=== PATIENT | male | born 1945 | race Caucasian/White ===

== ENCOUNTER → 2017-05-25 | Outpatient (CLI) | payer MEDICARE ==
[2017-05-25 12:49] LABS: AUTOMATED NEUTROPHIL # 3.8 TH/MM3 (1.8-7.7); BASOPHIL # 0.1 TH/MM3 (0-0.2); BASOPHIL % 1.3 % (0.0-2.0); EOSINOPHIL # 0.5 TH/MM3 (0-0.4); EOSINOPHIL % 6.4 % (0.0-4.0); HEMATOCRIT 42.4 % (39.0-51.0); HEMO FLAGS DIFF FINAL; LYMPH % 28.6 % (9.0-44.0); LYMPHOCYTE # 2.1 TH/MM3 (1.0-4.8); MEAN CELL VOLUME 88.8 FL (80.0-100.0); MEAN CORPUSCULAR HEMOGLOBIN 30.1 PG (27.0-34.0); MEAN CORPUSCULAR HGB CONC 33.9 % (32.0-36.0); MONO % 11.2 % (0.0-8.0); NEUT % 52.5 % (16.0-70.0); PLATELET COUNT 236 TH/MM3 (150-450); RED BLOOD COUNT 4.77 MIL/MM3 (4.50-5.90); RED CELL DISTRIBUTION WIDTH 13.2 % (11.6-17.2); WHITE BLOOD COUNT 7.2 TH/MM3 (4.0-11.0)
[2017-05-25 13:23] LABS: ANION GAP 5 MEQ/L (5-15); AST (GOT) 14 U/L (15-37); BICARBONATE 30.2 MEQ/L (21.0-32.0); BLOOD UREA NITROGEN 20 MG/DL (7-18); CHLORIDE 105 MEQ/L (98-107); GLOMERULAR FILTRATION RATE 54 ML/MIN (>89); GLUCOSE,FASTING 100 MG/DL (74-99); POTASSIUM 4.6 MEQ/L (3.5-5.1); SODIUM (NA) 140 MEQ/L (136-145)
[2017-05-25 13:34] LABS: ALKALINE PHOSPHATASE 60 U/L (45-117); ALT (GPT) 23 U/L (12-78); LDL CHOLESTEROL 100 MG/DL (0-99)
== END ==
LOC: PLAB 08:54
PROVIDERS: ATTEND Family Medicine
DX: I10 Essential (primary) hypertension (principal); E78.5 Hyperlipidemia, unspecified
CPT/HCPCS: 36415; 80053; 80061; 85025

== ENCOUNTER 2018-11-13 11:54 | Inpatient (IN) ==
--- NOTE | 2018-11-13 14:18 | ED ---
HPI General Chief Complaint: Extremity Injury, Lower Stated Complaint: Seen Yesterday Trip/Fall R Arm/L Foot Injury Time Seen by Provider: 11/13/18 13:51 Source: patient and family History of Present Illness HPI Narrative: 73-year-old male with a past medical history of hypertension presents to the emergency room for the second day in a row complaining of left ankle pain after a fall. Patient fell from the attic onto the floor yesterday causing right shoulder and right ankle pain. Patient had right shoulder dislocation for which he had reduced. Left ankle x-rays showed no fractures. Today he presents to the ER with increasing pain in the left foot with inability to walk on along with blisters formation on both sides of the left ankle. Patient had an ankle stirrup in place for the sprained ankle from yesterday. Patient denies seizure-like activity, dizziness, weakness, numbness or altered mental status. Related Data Home Medications Medication Instructions Recorded Confirmed aspirin [Aspir-81] 81 mg PO DAILY 11/13/18 11/13/18 lisinopril-hydrochlorothiazide 1 tab PO DAILY 11/13/18 11/13/18 metoprolol tartrate 1 mg/kg PO BID 11/13/18 11/13/18 omeprazole 20 mg PO DAILY 11/13/18 11/13/18 Allergies Allergy/AdvReac Type Severity Reaction Status Date / Time No Known Allergies Allergy Verified 11/12/18 14:58 Review of Systems ROS: all other systems reviewed are negative Constitutional Denies fever(s) Eyes Denies change in vision ENT Denies headache(s) and Denies nasal congestion Cardiovascular Denies chest pain Respiratory Denies dyspnea Gastrointestinal Denies abdominal pain Genitourinary Denies difficulty urinating Musculoskeletal Denies myalgias Integumentary/Breasts Denies rash Neurologic Denies headache(s) Psychiatric Denies depression Endocrine Denies polyuria Hematologic/Lymphatic Denies easy bruising PMFSH Medical History Medical History GERD (gastroesophageal reflux disease) (Acute) Obesity (Acute) Hypertension (Acute) Surgical History Surgical History No history of previous surgery (Acute) Family History Family History Other Family history non-contributory Social History Social History Substance History: No History of Abuse Second Hand Smoke Exposure: No Smoking Status: Never smoker How Often Do You Have a Drink Containing Alcohol: Monthly or less Recent Travel in [facility] within the Last 8 Weeks: No Recent Out of Country Travel within the Last 8 Weeks: No Immunization History Tetanus Immunization: <5 Years Exam Narrative Exam Narrative: GENERAL: Patient is alert and oriented -3 SKIN: Focused skin assessment warm/dry. HEAD: Atraumatic. Normocephalic. EYES: Pupils equal and round. No scleral icterus. No injection or drainage. ENT: No nasal bleeding or discharge. Mucous membranes pink and moist. NECK: Trachea midline. No JVD. CARDIOVASCULAR: Regular rate and rhythm. No murmur appreciated. RESPIRATORY: No accessory muscle use. Clear to auscultation. Breath sounds equal bilaterally. GASTROINTESTINAL: Abdomen soft, non-tender, nondistended. Hepatic and splenic margins not palpable. MUSCULOSKELETAL: Right shoulder is in shoulder immobilizer with tenderness to palpation anteriorly. There is reduced range of motion in the right shoulder due to pain. The left ankle and foot are swollen with ecchymosis and blisters on the medial lateral malleoli. Patient also has tenderness to palpation over the fifth metatarsal and calcaneus. NEUROLOGICAL: Awake and alert. No obvious cranial nerve deficits. Motor grossly within normal limits. Normal speech. PSYCHIATRIC: Appropriate mood and affect; insight and judgment normal. Course Initial Documented Vital Signs Temperature 98.5 F 11/13/18 12:09 Pulse Rate 90 11/13/18 12:09 Respiratory Rate 18 11/13/18 12:09 Blood Pressure 151/69 H 11/13/18 12:09 Pulse Oximetry 90 L 11/13/18 12:09 Last Documented Vital Signs Temperature 98.5 F 11/13/18 12:09 Pulse Rate 85 11/13/18 18:30 Respiratory Rate 18 11/13/18 18:30 Blood Pressure 180/85 H 11/13/18 18:36 Pulse Oximetry 97 11/13/18 18:30 Medical Decision Making MDM Narrative Medical decision making narrative: 73-year-old male with a past medical history of hypertension presents to the emergency room today complaining of left ankle and foot pain with blister formation on the ankle. Patient was unable to bear weight on the left leg due to pain and swelling. An x-ray of the left foot today revealed a comminuted calcaneal fracture that was confirmed with CAT scan. I discussed the findings with the orthopedic presentation team member who referred me to Dr. Ramriez. I discussed the admission with the hospitalist who accepted to admit the patient to [facility] medical floor. At this time the patient is splinted with a posterior and lateral ankle splint. Patient is neurovascularly intact post splint placement. Pain is well controlled. Medical Screen Exam Complete: Yes Emergency Medical Condition: Yes Lab Data Result diagrams: 11/13/18 17:05 11/13/18 17:05 Lab Results 11/13/18 11/13/18 11/13/18 Range/Units 17:05 17:05 17:05 CBC w Diff Auto diff final WBC 11.4 H (4.0-11.0) th/mm3 RBC 4.16 L (4.50-5.90) mil/mm3 Hgb 12.9 L (13.0-17.0) gm/dL Hct 36.2 L (39.0-51.0) % MCV 87.1 (80.0-100.0) fL MCH 30.9 (27.0-34.0) pg MCHC 35.5 (32.0-36.0) % RDW 12.0 (11.6-17.2) % Plt Count 257 (150-450) th/mm3 MPV 8.1 (7.0-11.0) fL Neut % (Auto) 76.4 H (16.0-70.0) % Lymph % (Auto) 11.0 (9.0-44.0) % Dade % (Auto) 11.0 H (0.0-8.0) % Eos % (Auto) 0.7 (0.0-4.0) % Baso % (Auto) 0.9 (0.0-2.0) % Neut # (Auto) 8.6 H (1.8-7.7) th/mm3 Lymph # (Auto) 1.3 (1.0-4.8) th/mm3 Dade # (Auto) 1.3 H (0.0-0.9) th/mm3 Eos # (Auto) 0.1 (0.0-0.4) th/mm3 Baso # (Auto) 0.1 (0.0-0.2) th/mm3 WBC Differential . Differential Comment . PT (9.8-11.6) sec INR Ratio APTT (23.4-31.7) sec Sodium 137 (136-145) meq/L Potassium 3.6 (3.5-5.1) meq/L Chloride 105 (98-107) meq/L Carbon Dioxide 24.5 (21.0-32.0) meq/L Anion Gap 8 (5-15) meq/L BUN 19 H (7-18) mg/dL Creatinine 1.10 (0.60-1.30) mg/dL Estimated GFR 66 L (>89) mL/min Random Glucose 116 H (74-106) mg/dL Calcium 9.1 (8.5-10.1) mg/dL Total Bilirubin 1.0 (0.2-1.0) mg/dL AST 21 (15-37) U/L ALT 28 (12-78) U/L Alkaline Phosphatase 68 (45-117) U/L Total Creatine Kinase 473 H (39-308) U/L CK-MB (CK-2) Less than 1.0 (0.5-3.6) ng/mL CK-MB (CK-2) % 0.2 (0.0-4.0) % Troponin I (0.02-0.05) ng/mL Total Protein 7.5 (6.4-8.2) g/dL Albumin 3.7 (3.4-5.0) g/dL 11/13/18 11/13/18 Range/Units 17:05 17:05 CBC w Diff WBC (4.0-11.0) th/mm3 RBC (4.50-5.90) mil/mm3 Hgb (13.0-17.0) gm/dL Hct (39.0-51.0) % MCV (80.0-100.0) fL MCH (27.0-34.0) pg MCHC (32.0-36.0) % RDW (11.6-17.2) % Plt Count (150-450) th/mm3 MPV (7.0-11.0) fL Neut % (Auto) (16.0-70.0) % Lymph % (Auto) (9.0-44.0) % Dade % (Auto) (0.0-8.0) % Eos % (Auto) (0.0-4.0) % Baso % (Auto) (0.0-2.0) % Neut # (Auto) (1.8-7.7) th/mm3 Lymph # (Auto) (1.0-4.8) th/mm3 Dade # (Auto) (0.0-0.9) th/mm3 Eos # (Auto) (0.0-0.4) th/mm3 Baso # (Auto) (0.0-0.2) th/mm3 WBC Differential Differential Comment PT 11.0 (9.8-11.6) sec INR 1.1 Ratio APTT 30.3 (23.4-31.7) sec Sodium (136-145) meq/L Potassium (3.5-5.1) meq/L Chloride (98-107) meq/L Carbon Dioxide (21.0-32.0) meq/L Anion Gap (5-15) meq/L BUN (7-18) mg/dL Creatinine (0.60-1.30) mg/dL Estimated GFR (>89) mL/min Random Glucose (74-106) mg/dL Calcium (8.5-10.1) mg/dL Total Bilirubin (0.2-1.0) mg/dL AST (15-37) U/L ALT (12-78) U/L Alkaline Phosphatase (45-117) U/L Total Creatine Kinase (39-308) U/L CK-MB (CK-2) (0.5-3.6) ng/mL CK-MB (CK-2) % (0.0-4.0) % Troponin I Less than 0.02 L (0.02-0.05) ng/mL Total Protein (6.4-8.2) g/dL Albumin (3.4-5.0) g/dL Imaging Data Radiologist's impression: Foot X-Ray 11/13/18 14:09 CONCLUSION: Questionable comminuted, minimally displaced fracturing of the mid and distal body of the calcaneus. If felt clinically indicated, left foot CT recommended. Other bones of the left foot appear intact. Foot CT 11/13/18 14:38 CONCLUSION: Extremely comminuted acute fracture of the calcaneus as described. There is intra-articular involvement of the calcaneocuboid joint and also the posterior and middle facets of the subtalar joint. Please see above. Chest X-Ray 11/13/18 16:48 CONCLUSION: No acute cardiopulmonary disease demonstrated. Discharge Plan Discharge Disposition Patient Disposition: 02 Transfer To [facility] Discharge Condition Condition: Fair Discharge Details Diagnosis: Closed left calcaneal fracture, Accelerated hypertension, Ambulatory dysfunction, Dislocation of shoulder joint Physicians Team ED Provider: Omkar Retana Primary Care Provider: Cb Higgins Attending Provider: Cezar John Other Providers: Deepak Lockhart Status ED Status: Admitted Patient
--- NOTE | 2018-11-13 14:34 | XR ---
EXAM DATE: 11/13/2018 2:24 PM EST AGE/SEX: 73 years / Male INDICATIONS: Left foot pain after fall. CLINICAL DATA: This is the patient's subsequent encounter. Patient reports that signs and symptoms h ave been present for 2 days and indicates a pain score of 7/10. MEDICAL/SURGICAL HISTORY: Hypertension. None. COMPARISON: [facility], ANKLE COMPLETE LEFT MIN 3V, 11/12/2018. . FINDINGS: Soft tissues are diffusely swollen. There is questionable comminuted but minimally displaced fracturi ng of the calcaneus in the mid to distal body region. Other bones of the left foot appear intact. 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 Os peroneum present. There is a small heel spur and also a small enthes ophyte of the Achilles insertion. CONCLUSION: Questionable comminuted, minimally displaced fracturing of the mid and distal body of the calcaneus. If felt clinically indicated, left foot CT recommended. Other bones of the left foot appear intact. Electronically signed by: Gino Cope MD Board Certified Radiologist 11/13/2018 2:33 PM EST
--- NOTE | 2018-11-13 15:54 | CT ---
EXAM DATE: 11/13/2018 3:43 PM EST AGE/SEX: 73 years / Male INDICATIONS: Left calcaneus pain. Evaluate fracture. CLINICAL DATA: This is the patient's initial encounter. Patient reports that signs and symptoms have been present for 2 days and indicates a pain score of 8/10. MEDICAL/SURGICAL HISTORY: Hypertension. None. RADIATION DOSE: 8.87 CTDI (mGy) COMPARISON: [facility], FOOT COMPLETE LEFT 3V, 11/13/2018. . TECHNIQUE: Multiple contiguous axial images were acquired using a multirow detector CT scanner witho ut contrast. Multiplanar reconstruction was performed in the sagittal and coronal planes. Using auto mated exposure control and adjustment of the mA and/or kV according to patient size, radiation dose w as kept as low as reasonably achievable to obtain optimal diagnostic quality images. DICOM format im age data is available electronically for review and comparison. FINDINGS: CT confirms presence of a comminuted fracture of the calcaneus at the fracture involves the body and is intra-articular at the posterior and middle facets. There is generalized subsidence and associated straightening of Boehler's angle. There is approximately 4 mm of separation and 2 mm of step off of the middle facet articular surface. The posterior facet articular surface as extremely comminuted and there is generalized central downsloping. A large posteromedial fragment of the posterior facet has posteromedial downsloping. The fracture focally involves the far inferomedial articular surface of th e calcaneocuboid joint and is quite comminuted and without the 4 mm of step-off, series 305 image 30. Plantar fascia and Achilles attachments are not involved by fracture. Other bones of the hindfoot are intact. There is a multipart os peroneum. CONCLUSION: Extremely comminuted acute fracture of the calcaneus as described. There is intra-articul ar involvement of the calcaneocuboid joint and also the posterior and middle facets of the subtalar j oint. Please see above. Electronically signed by: Gino Cope MD Board Certified Radiologist 11/13/2018 3:52 PM EST
[2018-11-13] MEDS ORDERED: Morphine Inj 4 MG/ML Vial IV.PUSH ONE (16:48)
[2018-11-13] MEDS ORDERED: Sod Chloride 0.9% Inj 1,000 ML IV.SIG SCH (17:00)
--- NOTE | 2018-11-13 17:07 | XR ---
EXAM DATE: 11/13/2018 5:03 PM EST AGE/SEX: 73 years / Male INDICATIONS: Pre op foot surgery. CLINICAL DATA: This is the patient's initial encounter. Patient reports that signs and symptoms have been present for 1 day and indicates a pain score of 0/10. MEDICAL/SURGICAL HISTORY: Hypertension. . COMPARISON: No prior exams available for comparison. FINDINGS: A single AP view of the chest demonstrates the lungs to be symmetrically aerated without evidence of mass, infiltrate or effusion. The cardiomediastinal contours are unremarkable. Osseous structures a re intact. CONCLUSION: No acute cardiopulmonary disease demonstrated. Electronically signed by: Gino Cope MD Board Certified Radiologist 11/13/2018 5:05 PM EST
[2018-11-13 17:30] LABS: Baso # (Auto) 0.1 th/mm3 (0.0-0.2); Baso % (Auto) 0.9 % (0.0-2.0); Eos # (Auto) 0.1 th/mm3 (0.0-0.4); Eos % (Auto) 0.7 % (0.0-4.0); Hematocrit 36.2 % (39.0-51.0); Hemoglobin 12.9 gm/dL (13.0-17.0); Lymph # (Auto) 1.3 th/mm3 (1.0-4.8); Mean Corpuscular HGB Conc 35.5 % (32.0-36.0); Mean Corpuscular Hemoglobin 30.9 pg (27.0-34.0); Mean Corpuscular Volume 87.1 fL (80.0-100.0); Mean Platelet Volume 8.1 fL (7.0-11.0); Mono # (Auto) 1.3 th/mm3 (0.0-0.9); Neut # (Auto) 8.6 th/mm3 (1.8-7.7); Neut % (Auto) 76.4 % (16.0-70.0); Platelet Count 257 th/mm3 (150-450); Red Blood Count 4.16 mil/mm3 (4.50-5.90); White Blood Count 11.4 th/mm3 (4.0-11.0)
[2018-11-13 17:31] LABS: Chloride 105 meq/L (98-107); Potassium 3.6 meq/L (3.5-5.1); Sodium 137 meq/L (136-145)
[2018-11-13 17:35] LABS: Calcium 9.1 mg/dL (8.5-10.1)
[2018-11-13 17:36] LABS: Albumin 3.7 g/dL (3.4-5.0); Anion Gap 8 meq/L (5-15); Blood Urea Nitrogen 19 mg/dL (7-18); Carbon Dioxide 24.5 meq/L (21.0-32.0); Glucose,Random 116 mg/dL (74-106)
[2018-11-13 17:39] LABS: Alanine Aminotransferase 28 U/L (12-78); Aspartate Aminotransferase 21 U/L (15-37); Glomerular Filtration Rate 66 mL/min (>89)
[2018-11-13 17:41] LABS: Total Protein 7.5 g/dL (6.4-8.2)
[2018-11-13 17:42] LABS: Alkaline Phosphatase 68 U/L (45-117)
[2018-11-13 17:46] LABS: Creatine Kinase 473 U/L (39-308)
[2018-11-13 17:59] LABS: Activated Partial Thrombo Time 30.3 sec (23.4-31.7); INR 1.1 Ratio
[2018-11-13] MEDS ORDERED: Metoprolol Inj 5 MG/5 ML Vial IV.PUSH ONE (18:00)
[2018-11-13 18:11] LABS: CKMB Percent 0.2 % (0.0-4.0)
[2018-11-13] MEDS ORDERED: hydrALAZINE HCl Inj 20 MG/ML Vial IV.PUSH ONE (18:34)
--- NOTE | 2018-11-13 19:12 | P.HP ---
History of Present Illness Service: [facility] adult med Primary Care Physician: Cb Higgins MD Chief Complaint: Left foot pain/swelling; right shoulder pain s/p fall History of Present Illness: 73-year-old male with a past medical history of hypertension presents to the emergency room for the second day in a row complaining of left ankle pain after a fall. Patient fell from the attic onto the floor yesterday causing right shoulder and left ankle pain. Patient had right shoulder dislocation which was reduced in ER yesterday. Left ankle x-rays showed no fractures on initial visit. Today he presents to the ER with increasing pain and swelling in the left foot with inability to walk along with swelling on both sides of the left ankle. Patient had an ankle stirrup in place since ER visit yesterday. Patient denies seizure-like activity, dizziness, weakness, numbness or altered mental status. No CP or SOB. CT left foot done today in ER demonstrates significantly comminuted calcaneal frx with involvement of joint. Case was d/w ortho per ER provider and [facility]o [facility] medicine service. I evaluated pt in ER prior to transfer to site. 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 Has been in area x 19 yrs - Diagnosis (1) Closed left calcaneal fracture (2) Accelerated hypertension (3) GERD (gastroesophageal reflux disease) Inpatient Certification: I certify that the inpatient services were ordered in accordance with Medicare regulations governing the order. This includes certification that hospital inpatient services are reasonable and necessary and in the case of services not specified as inpatient-only under 42 CFR 419.22(n), that they are appropriately provided as inpatient services in accordance to with the 2-midnight benchmark under 43 CFR 412.3(e) Review of Systems Constitutional: Reports malaise, Denies anorexia, Denies body ache(s), Denies chills, Denies daytime sleepiness, Denies excessive sweating, Denies fatigue, Denies fever(s), Denies headache(s), Denies increased appetite, Denies lack of energy, Denies night sweats, Denies weakness, Denies weight gain, Denies weight loss, Denies other Eyes: Denies blind spots, Denies blurry vision, Denies bulging eyes, Denies change in vision, Denies double vision, Denies discharge, Denies dry eyes, Denies floaters, Denies irritation, Denies itchy eyes, Denies loss of vision, Denies pain, Denies requires corrective lenses, Denies sensitivity to light, Denies other Ears, Nose, Mouth, and Throat: Denies abnormal hearing, Denies bleeding gums, Denies bad breath, Denies change in voice, Denies dental pain, Denies difficulty swallowing, Denies dizziness, Denies dry mouth, Denies ear discharge , Denies ear pain, Denies facial pain, Denies headache(s), Denies hearing loss, Denies hoarseness, Denies lip swelling, Denies nosebleed, Denies mouth lesions, Denies mouth pain, Denies nasal congestion, Denies nasal discharge, Denies nasal obstruction, Denies nasal trauma, Denies neck lump, Denies neck pain, Denies nose pain, Denies pain with swallowing, Denies poor balance, Denies post nasal drip, Denies ringing in the ears, Denies sinus pain, Denies sinus pressure , Denies sore throat, Denies throat swelling, Denies tongue swelling, Denies other Cardiovascular: Denies chest pain, Denies chest pain at rest, Denies chest pain with activity, Denies excessive sweating, Denies fainting, Denies fast heart rate, Denies foot swelling, Denies generalized swelling, Denies irregular heart rhythm, Denies leg pain with activity, Denies leg sores, Denies leg swelling, Denies lightheadedness, Denies radiating jaw, neck or arm pain, Denies rapid, pounding, or irregular heartbeat, Denies shortness of breath, Denies shortness of breath with activity, Denies shortness of breath when lying down, Denies shortness of breath causing sudden awakening, Denies slow heart rate, Denies other Respiratory: Denies change in phlegm color, Denies chest congestion, Denies cough, Denies coughing up blood, Denies excessive phlegm production, Denies pain on inspiration, Denies pain with cough, Denies shortness of breath, Denies shortness of breath with activity, Denies snoring, Denies stridor, Denies wheezing, Denies other Gastrointestinal: Denies abdominal pain, Denies belching, Denies black, tarry stools, Denies bloating, Denies bright, red blood in stools, Denies change in bowel habits, Denies constant urge to pass stool, Denies change in stools, Denies coffee ground vomit, Denies constipation, Denies cramping, Denies difficulty swallowing, Denies excessive passing of gas, Denies feeling full early, Denies heartburn, Denies incontinent of stools, Denies loose stools, Denies nausea, Denies pain with swallowing, Denies vomiting, Denies vomiting blood, Denies other Musculoskeletal: Reports abnormal walking, Reports joint pain, Reports joint swelling, Reports limited joint movement Neurologic: Reports abnormal walking, Denies abnormal hearing, Denies abnormal movements, Denies abnormal speech, Denies behavioral changes, Denies burning sensations, Denies confusion, Denies dizziness, Denies fainting, Denies frequent falls, Denies headache(s), Denies lack of coordination, Denies localized weakness, Denies loss of vision, Denies memory loss, Denies numbness, Denies other visual disturbances, Denies radiating pain, Denies restless legs, Denies convulsions, Denies seizure-like activity, Denies sensory deficit, Denies tingling, Denies tingling/numbness/burning sensations, Denies tremor(s), Denies unsteadiness, Denies weakness, Denies other Psychiatric: Denies abnormal sleep pattern, Denies anxiety, Denies behavioral changes, Denies change in appetite, Denies change in sex drive, Denies confusion , Denies depression, Denies difficulty concentrating, Denies hearing things others do not hear, Denies hopelessness, Denies irritability, Denies lack of enjoyment, Denies memory loss, Denies mood swings, Denies panic attacks, Denies paranoia, Denies seeing things others do not see, Denies sensing things others do not sense, Denies tactile hallucinations, Denies thoughts of hurting/killing others, Denies thoughts of hurting/killing yourself, Denies other PMFSH - History History Provided By: Patient - Medical / Surgical Hx Neg / Unobtainable Surgical History: No Previous Surgery - Medical History Medical History: Medical History (Last Updated 11/13/18 @ 19:09 by Ramirez Cuevas MD, PhD) GERD (gastroesophageal reflux disease) Obesity Hypertension - Surgical History Surgical History: Surgical History (Last Reviewed 11/13/18 @ 14:17 by Omkar Retana) No history of previous surgery - Family History Family History: Family History (Last Updated 11/13/18 @ 19:08 by Ramirez Cuevas MD, PhD) Other Family history non-contributory - Social History I have reviewed the patient's Social History: Yes - Tobacco History Second Hand Smoke Exposure: No Smoking Status: Never smoker - Alcohol History How Often Do You Have a Drink Containing Alcohol: Monthly or less - Substance Use History Substance History: No History of Abuse - Travel History Recent Travel in the [place] Within the Last 8 Weeks: No Recent Travel Out of the Country Within the Last 8 Weeks: No - Immunization History Tetanus Immunization: <5 Years Medications and Allergies Allergies Allergy/AdvReac Type Severity Reaction Status Date / Time No Known Allergies Allergy Verified 11/12/18 14:58 Home Medications Medication Instructions Recorded Confirmed Type aspirin [Aspir-81] 81 mg PO DAILY 11/13/18 11/13/18 History lisinopril-hydrochlorothiazide 1 tab PO DAILY 11/13/18 11/13/18 History metoprolol tartrate 1 mg/kg PO BID 11/13/18 11/13/18 History omeprazole 20 mg PO DAILY 11/13/18 11/13/18 History Exam Vital signs: Vital Signs 11/13/18 12:09 11/13/18 15:28 11/13/18 17:47 Temperature 98.5 F Pulse Rate 90 90 85 Respiratory Rate 18 18 18 Blood Pressure 151/69 H 168/69 H 196/78 H Pulse Oximetry 90 L 99 97 11/13/18 18:30 11/13/18 18:36 Temperature Pulse Rate 85 Respiratory Rate 18 Blood Pressure 199/93 H 180/85 H Pulse Oximetry 97 Intake & Output 11/13/18 11/13/18 11/14/18 06:59 18:59 06:59 Intake Total 1000 / 1000 Output Total 400 / 400 Balance 600 / 600 Weight 93 kg Intake: IV 1000 / 1000 NS Inj 1,000 ML @ 1000 mls/hr 1000 / 1000 IV.SIG BOLUS PHI Rx#:[id number] Output: Urine 400 / 400 Narrative: GENERAL: obese, a/o, nad, cooperative SKIN: Warm and dry. left foot/ankle with edema and ecchymosis HEAD: Atraumatic. Normocephalic. EYES: Pupils equal and round. No scleral icterus. No injection or drainage. ENT: No nasal bleeding or discharge. Mucous membranes pink and moist. NECK: Trachea midline. No JVD. CARDIOVASCULAR: Regular rate and rhythm. no murmur RESPIRATORY: No accessory muscle use. Clear to auscultation. Breath sounds equal bilaterally. GASTROINTESTINAL: Abdomen soft, non-tender, nondistended. Hepatic and splenic margins not palpable. MUSCULOSKELETAL: Extremities without clubbing, cyanosis. Left ankle with edema and ttp, right shoulder with sling in place. NEUROLOGICAL: Awake and alert. No obvious cranial nerve deficits. Motor grossly within normal limits. Five out of 5 muscle strength in the arms and legs , but testing of left foot/right UE limited by pain and recent injuries. Normal speech. PSYCHIATRIC: Appropriate mood and affect; insight and judgment normal. Results - Labs CBC & Chem 7: 11/13/18 17:11/13/18 17:05 Labs: Laboratory Results - last 24 hr 11/13/18 11/13/18 11/13/18 17:05 17:05 17:05 CBC w Diff Auto diff final WBC 11.4 H RBC 4.16 L Hgb 12.9 L Hct 36.2 L MCV 87.1 MCH 30.9 MCHC 35.5 RDW 12.0 Plt Count 257 MPV 8.1 Neut % (Auto) 76.4 H Lymph % (Auto) 11.0 Posey % (Auto) 11.0 H Eos % (Auto) 0.7 Baso % (Auto) 0.9 Neut # (Auto) 8.6 H Lymph # (Auto) 1.3 Posey # (Auto) 1.3 H Eos # (Auto) 0.1 Baso # (Auto) 0.1 WBC Differential . Differential Comment . PT INR APTT Sodium 137 Potassium 3.6 Chloride 105 Carbon Dioxide 24.5 Anion Gap 8 BUN 19 H Creatinine 1.10 Estimated GFR 66 L Random Glucose 116 H Calcium 9.1 Total Bilirubin 1.0 AST 21 ALT 28 Alkaline Phosphatase 68 Total Creatine Kinase 473 H CK-MB (CK-2) Less than 1.0 CK-MB (CK-2) % 0.2 Troponin I Total Protein 7.5 Albumin 3.7 02/19/19 02/19/19 17:05 17:05 CBC w Diff WBC RBC Hgb Hct MCV MCH MCHC RDW Plt Count MPV Neut % (Auto) Lymph % (Auto) Posey % (Auto) Eos % (Auto) Baso % (Auto) Neut # (Auto) Lymph # (Auto) Posey # (Auto) Eos # (Auto) Baso # (Auto) WBC Differential Differential Comment PT 11.0 INR 1.1 APTT 30.3 Sodium Potassium Chloride Carbon Dioxide Anion Gap BUN Creatinine Estimated GFR Random Glucose Calcium Total Bilirubin AST ALT Alkaline Phosphatase Total Creatine Kinase CK-MB (CK-2) CK-MB (CK-2) % Troponin I Less than 0.02 L Total Protein Albumin - Imaging Impressions Foot X-Ray 11/13/18 14:09 CONCLUSION: Questionable comminuted, minimally displaced fracturing of the mid and distal body of the calcaneus. If felt clinically indicated, left foot CT recommended. Other bones of the left foot appear intact. Foot CT 11/13/18 14:38 CONCLUSION: Extremely comminuted acute fracture of the calcaneus as described. There is intra-articular involvement of the calcaneocuboid joint and also the posterior and middle facets of the subtalar joint. Please see above. Chest X-Ray 11/13/18 16:48 CONCLUSION: No acute cardiopulmonary disease demonstrated. Caprini VTE Risk Assessment Caprini VTE Risk Assessment: Moderate/High Risk (score >= 2) Caprini Risk Assessment Model: Point Value = 1 Point Value = 2 Point Value = 3 Point Value = 5 Age 41-60 Minor surgery BMI > 25 kg/m2 Swollen legs Varicose veins or History of unexplained or recurrent spontaneous Oral contraceptives or hormone replacement Sepsis (< 1 month) Serious lung disease, including pneumonia (< 1 month) Abnormal pulmonary function Acute myocardial infarction Congestive heart failure (< 1 month) History of inflammatory bowel disease Medical patient at bed rest Age 61-74 Arthroscopic surgery Major open surgery (> 45 min) Laparoscopic surgery (> 45 min) Malignancy Confined to bed (> 72 hours) Immobilizing plaster cast Central venous access Age >= 75 History of VTE Family history of VTE Factor V Leiden Prothrombin [id number] Lupus anticoagulant Anticardiolipin antibodies Elevated serum homocysteine Heparin-induced thrombocytopenia Other congenital or acquired thrombophilia Stroke (< 1 month) Elective arthroplasty Hip, pelvis, or leg fracture Acute spinal cord injury (< 1 month) Prophylaxis Regimen: Total Risk Factor Score Risk Level Prophylaxis Regimen 0-1 Low Early ambulation 2 Moderate Order ONE of the following: *Sequential Compression Device (SCD) *Heparin 5000 units SQ BID 3-4 Higher Order ONE of the following medications: *Heparin 5000 units SQ TID *Enoxaparin/Lovenox 40 mg SQ daily (WT < 150 kg, CrCl > 30 mL/min) *Enoxaparin/Lovenox 30 mg SQ daily (WT < 150 kg, CrCl > 10-29 mL/min) *Enoxaparin/Lovenox 30 mg SQ BID (WT < 150 kg, CrCl > 30 mL/min) AND/OR *Sequential Compression Device (SCD) 5 or more Highest Order ONE of the following medications: *Heparin 5000 units SQ TID (Preferred with Epidurals) *Enoxaparin/Lovenox 40 mg SQ daily (WT < 150 kg, CrCl > 30 mL/min) *Enoxaparin/Lovenox 30 mg SQ daily (WT < 150 kg, CrCl > 10-29 mL/min) *Enoxaparin/Lovenox 30 mg SQ BID (WT < 150 kg, CrCl > 30 mL/min) AND *Sequential Compression Device (SCD) Assessment and Plan - Assessment (1) Closed left calcaneal fracture Code(s): S92.002A - Unspecified fracture of left calcaneus, initial encounter for closed fracture Status: Acute Plan: management per ortho. They have requested admission to medical service and xfer to [facility]. pain meds, NPO after MN (2) Accelerated hypertension Code(s): I10 - Essential (primary) hypertension Status: Acute Plan: continue meds as BP permits (3) GERD (gastroesophageal reflux disease) Code(s): K21.9 - Gastro-esophageal reflux disease without esophagitis Status: Acute Plan: continue ppi - Plan Code Status: full Discussed Condition With: Pt, his GF, Er provider
[2018-11-13] MEDS: Metoprolol Tartrate 25 MG Tablet PO SCH (22:08)
[2018-11-13] MEDS: Morphine Sulfate Inj 2 MG/ML Vial IV.PUSH PRN (23:39)
[2018-11-14] MEDS ORDERED: Metoprolol Tartrate 25 MG Tablet PO SCH (02:04)
[2018-11-14] MEDS ORDERED: Chlorhexidine Gluconate 2% 1 Pack (2 Cloths) TOPICAL ONE (02:04)
[2018-11-14] MEDS ORDERED: Sodium Chloride 0.9% 2 ML Flush PRN IV.FLUSH (02:07)
[2018-11-14] MEDS ORDERED: Sodium Chlor 0.9% Inj 500 ML IV.SIG SCH (03:00)
[2018-11-14] MEDS: Morphine Sulfate Inj 2 MG/ML Vial IV.PUSH PRN (04:34)
--- NOTE | 2018-11-14 07:50 | P.CONOP ---
[facility] Orthopedics Consult Note - [facility] Consult date: 11/14/18 Chief complaint: Comminuted calcaneal fracture, accelerated Narrative: Cb is a 73-year-old male. He fell at home on 11/12/2018. He was up in his attic using a bug bomb. As he was going down the ladder steps he fell. He injured his left foot and right shoulder. Initially had a right shoulder dislocation and a left calcaneus fracture. Shoulder was reduced to the emergency room. He presented back to the emergency room yesterday complaining of increased swelling and blistering of his foot. He has been nonweightbearing. He states that he was tolerating being at home relatively well. He was mostly staying in bed. He was using a rolling chair to get to the bathroom. He complains mostly of left foot pain. Pain is worse with movement of the shoulder or foot. He denies loss of consciousness. Review of Systems Patient denies fevers, chills, weight loss, headache, visual changes, hearing loss, chest pain, palpitations, shortness of breath, nausea, vomiting, no urinary changes, diarrhea, bowel changes, neck pain, back pain, skin rashes, weakness of extremities, easy bleeding, enlarged lymph nodes, numbness of extremities, anxiety, or depression. He complains of right shoulder pain and left foot pain Patient's social history, past medical history, and family history were reviewed on chart and with patient. [facility] - History History Provided By: Patient - Medical History Medical History: Medical History (Last Reviewed 11/14/18 @ 07:45 by Sage Yeung MD) GERD (gastroesophageal reflux disease) Obesity Hypertension - Surgical History Surgical History: Surgical History (Last Reviewed 11/13/18 @ 14:17 by Omkar Retana) No history of previous surgery - Family History Family History: Family History (Last Reviewed 11/14/18 @ 07:45 by Sage Yeung MD) Other Family history non-contributory - Social History I have reviewed the patient's Social History: Yes - Tobacco History Second Hand Smoke Exposure: No Smoking Status: Never smoker - Alcohol History How Often Do You Have a Drink Containing Alcohol: Never - Substance Use History Substance History: No History of Abuse - Travel History Recent Travel in the [facility] Within the Last 8 Weeks: No Recent Travel Out of the Country Within the Last 8 Weeks: No - Immunization History Tetanus Immunization: Unsure Hx Influenza Vaccine This Season: Yes Medications and Allergies Active Medications: Active Medications Aspirin (Ecotrin) 81 mg PO DAILY ON LICENSE OF [facility] Clonidine HCl (Catapres) 0.1 mg PO Q6H PRN PRN Reason: sbp >160 or dbp >95 Hydrochlorothiazide (Hydrodiuril) 12.5 mg PO DAILY ON LICENSE OF [facility] Lactated Ringer's (Lr 1000 Ml Inj) 1,000 mls @ 30 mls/hr IV.SIG .Q24H ON LICENSE OF [facility] Stop: 11/15/18 02:14 Last Admin: 11/14/18 04:35 Dose: 30 mls/hr Sodium Chloride (Ns Inj) 500 mls @ 30 mls/hr IV.SIG .Q10H ON LICENSE OF [facility] Last Admin: 11/14/18 05:09 Dose: Not Given Lisinopril (Prinivil) 20 mg PO DAILY ON LICENSE OF [facility] Metoprolol Tartrate (Lopressor) 25 mg PO BID ON LICENSE OF [facility] Last Admin: 11/13/18 22:08 Dose: 25 mg Metoprolol Tartrate (Lopressor) 25 mg PO 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 ON LICENSE OF [facility] Stop: 11/15/18 02:03 Morphine Sulfate (Morphine Inj) 2 mg IV.PUSH Q3H PRN PRN Reason: pain level 3-10 Last Admin: 11/14/18 04:34 Dose: 2 mg Ondansetron HCl (Zofran Inj) 4 mg IV.PUSH Q6H PRN PRN Reason: nausea, vomiting Pantoprazole Sodium (Protonix) 20 mg PO DAILY ON LICENSE OF [facility] Sodium Chloride (Ns Flush) 2 ml IV.FLUSH BID ON LICENSE OF [facility] Sodium Chloride (Ns Flush) 2 ml IV.FLUSH PRN PRN PRN Reason: FLUSH AFTER USING IV ACCESS Allergies Allergy/AdvReac Type Severity Reaction Status Date / Time No Known Allergies Allergy Verified 11/12/18 14:58 Home Medications Medication Instructions Recorded Confirmed Type aspirin [Aspir-81] 81 mg PO DAILY 11/13/18 11/13/18 History lisinopril-hydrochlorothiazide 1 tab PO DAILY 11/13/18 11/13/18 History metoprolol tartrate 1 mg/kg PO BID 11/13/18 11/13/18 History omeprazole 20 mg PO DAILY 11/13/18 11/13/18 History Exam Vital signs: Vital Signs 11/13/18 12:09 11/13/18 15:28 11/13/18 17:47 Temperature 98.5 F Pulse Rate 90 90 85 Respiratory Rate 18 18 18 Blood Pressure 151/69 H 168/69 H 196/78 H Pulse Oximetry 90 L 99 97 11/13/18 18:30 11/13/18 18:36 11/13/18 19:50 Temperature Pulse Rate 85 84 Respiratory Rate 18 18 Blood Pressure 199/93 H 180/85 H 150/84 H Pulse Oximetry 97 11/13/18 21:50 11/14/18 00:40 11/14/18 04:45 Temperature 98.9 F 99.2 F 99.1 F Pulse Rate 88 78 87 Respiratory Rate 16 16 17 Blood Pressure 147/74 H 122/63 142/68 H Pulse Oximetry 96 95 96 Intake & Output 11/13/18 11/14/18 11/14/18 18:59 06:59 18:59 Intake Total 1000 / 1000 0 / 0 Output Total 400 / 400 350 / 350 Balance 600 / 600 -350 / -350 Weight 93 kg 93 kg Intake: IV 1000 / 1000 NS Inj 1,000 ML @ 1000 mls/hr 1000 / 1000 IV.SIG BOLUS PHI Rx#:[id number] Oral 0 / 0 Output: Urine 400 / 400 350 / 350 Other: Date of Last Bowel Movement 11/12/18 # Bowel Movements 0 Weight On Admission 93 kg Narrative: Cb is a pleasant 73-year-old male. General: Awake and alert. No acute distress. Appears well-developed well- nourished Head: Normocephalic, atraumatic pupils are equal Neck: Soft, nontender, trachea midline Abdomen: Soft, nondistended Examination of right arm reveals no pain or deformity with elbow or wrist motion. He has mild discomfort with shoulder motion. Skin is intact. Radial pulse is palpable. Normal capillary refill in fingers. Sensation is intact in radial, ulnar, and median nerve distributions. 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 No lymphadenopathy noted. Examination of left arm reveals no pain or deformity with shoulder, elbow, or wrist motion. Skin is intact. Radial pulse is palpable. Normal capillary refill in fingers. Sensation is intact in radial, ulnar, and median nerve distributions. 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 No lymphadenopathy noted. Examination of left lower extremity reveals no pain or deformity with hip or knee motion motion. He has a short leg splint in place. He has pain with ankle motion. He has moderate swelling of the foot and ankle with fracture blisters present. Dorsalis pedis pulse is palpable. Normal capillary refill and feet. Thigh and calf compartments are soft. No lymphadenopathy noted. Sensation is intact in left foot. Examination of right lower extremity reveals no pain or deformity with hip, knee , or ankle motion. Skin is intact. Dorsalis pedis pulse is palpable. Normal capillary refill and feet. Thigh and calf compartments are soft. No lymphadenopathy noted. +5 strength of ankle dorsiflexion and plantarflexion. Sensation is intact in right foot. Results - Labs Result Diagrams: 11/13/18 17:05 11/13/18 17:05 Labs: Laboratory Results - last 24 hr 11/13/18 11/13/18 11/13/18 17:05 17:05 17:05 CBC w Diff Auto diff final WBC 11.4 H RBC 4.16 L Hgb 12.9 L Hct 36.2 L MCV 87.1 MCH 30.9 MCHC 35.5 RDW 12.0 Plt Count 257 MPV 8.1 Neut % (Auto) 76.4 H Lymph % (Auto) 11.0 Grant % (Auto) 11.0 H Eos % (Auto) 0.7 Baso % (Auto) 0.9 Neut # (Auto) 8.6 H Lymph # (Auto) 1.3 Grant # (Auto) 1.3 H Eos # (Auto) 0.1 Baso # (Auto) 0.1 WBC Differential . Differential Comment . PT INR APTT Sodium 137 Potassium 3.6 Chloride 105 Carbon Dioxide 24.5 Anion Gap 8 BUN 19 H Creatinine 1.10 Estimated GFR 66 L Random Glucose 116 H Calcium 9.1 Total Bilirubin 1.0 AST 21 ALT 28 Alkaline Phosphatase 68 Total Creatine Kinase 473 H CK-MB (CK-2) Less than 1.0 CK-MB (CK-2) % 0.2 Troponin I Total Protein 7.5 Albumin 3.7 11/13/18 11/13/18 17:05 17:05 CBC w Diff WBC RBC Hgb Hct MCV MCH MCHC RDW Plt Count MPV Neut % (Auto) Lymph % (Auto) Grant % (Auto) Eos % (Auto) Baso % (Auto) Neut # (Auto) Lymph # (Auto) Grant # (Auto) Eos # (Auto) Baso # (Auto) WBC Differential Differential Comment PT 11.0 INR 1.1 APTT 30.3 Sodium Potassium Chloride Carbon Dioxide Anion Gap BUN Creatinine Estimated GFR Random Glucose Calcium Total Bilirubin AST ALT Alkaline Phosphatase Total Creatine Kinase CK-MB (CK-2) CK-MB (CK-2) % Troponin I Less than 0.02 L Total Protein Albumin - Diagnostic results Imaging: Impressions Foot X-Ray 11/13/18 14:09 CONCLUSION: Questionable comminuted, minimally displaced fracturing of the mid and distal body of the calcaneus. If felt clinically indicated, left foot CT recommended. Other bones of the left foot appear intact. Foot CT 11/13/18 14:38 CONCLUSION: Extremely comminuted acute fracture of the calcaneus as described. There is intra-articular involvement of the calcaneocuboid joint and also the posterior and middle facets of the subtalar joint. Please see above. Chest X-Ray 11/13/18 16:48 CONCLUSION: No acute cardiopulmonary disease demonstrated. Ankle/Foot CT: report reviewed, image reviewed Assessment and Plan - Assessment and Plan Cb had a fall resulting in right shoulder dislocation and mildly comminuted left calcaneus fracture. He has significant soft tissue injury of the left foot. He has moderate swelling with fracture blisters forming. I discussed with him surgical and nonsurgical options. At this point he has too much soft tissue swelling and skin blistering to consider surgery. He will need to elevate his foot. He will need to be strictly nonweightbearing. He will remain in a sling for his right shoulder. If he is safe to go home, he could go home for a week or so to allow for soft tissue healing. He will need to follow-up with me in office in 7-10 days for reevaluation of his skin and soft tissue. He may be a surgical candidate if the soft tissue proved significant only. If the soft tissue does not improve significantly, we may treat the calcaneus nonoperatively. He is in agreement with this plan. All questions were answered. A mid-level provider in my office (nurse practitioner or physician review assistant) may see this patient on follow-up visits and continue to implement the objectives of this plan including: Starting or adjusting medications, injections , cast application, orthotics, brace application, physical therapy, radiological studies (including x-ray, MRI, CT, ultrasound, bone scan), vascular studies, neurologic studies, specialist consultation, and proceeding with surgical management, as appropriate.
[2018-11-14] MEDS: hydroCHLOROthiazide 25 MG Tablet PO SCH (08:25)
[2018-11-14] MEDS: Metoprolol Tartrate 25 MG Tablet PO SCH ×2 (08:26→23:20)
[2018-11-14] MEDS: Lisinopril 20 MG Tablet PO SCH (08:27)
--- NOTE | 2018-11-14 12:57 | P.PNIM ---
Subjective Interval history: eager for dc Physical Exam Vital signs: Last Vital Signs Temp 98.2 F 11/14/18 08:00 Pulse 75 11/14/18 08:00 Resp 18 11/14/18 08:00 BP 132/63 11/14/18 08:00 Pulse Ox 97 11/14/18 10:42 Narrative: left foot splinted right arm sling Results Labs CBC & Chem 7: 11/13/18 17:05 11/13/18 17:05 Assessment and Plan Assessment (1) Closed left calcaneal fracture: Code(s): S92.002A - Unspecified fracture of left calcaneus, initial encounter for closed fracture Status: Acute (2) Accelerated hypertension: Code(s): I10 - Essential (primary) hypertension Status: Acute (3) GERD (gastroesophageal reflux disease): Code(s): K21.9 - Gastro-esophageal reflux disease without esophagitis Status: Acute Plan Pt was admitted after fall for left calcaneal fx and left humerus dislocation. Pt seen by Ortho Dr Black. to much swelling. he was instructed to go home and f/u in next 1-2 weeks for possible surgical intervention if swelling and blistering is better. wheelchair. splint to leg and sling for arm. pain meds writted per ortho. Progress Note: Quality VTE Deep Vein Thrombosis/Pulmonary Embolism Present on Admission: No _ (1) Closed left calcaneal fracture Qualifiers: Calcaneus location: Encounter type: Fracture alignment: Fracture healing : Fracture morphology: Salter-Borjas Fracture Type: (2) GERD (gastroesophageal reflux disease) Qualifiers: Esophagitis presence:
--- NOTE | 2018-11-14 12:58 | P.DCO ---
Diagnosis (1) Closed left calcaneal fracture: Status: Acute Physical Therapy Order: Evaluate and treat Home Health Nursing Order: Medical education, Signs/symptoms of disease process, Medication education-adverse effect and Nursing assessment with vital signs Case Management Consult Case Management Consult-Home Health: Yes I have seen patient Cb Ch JR on 11/14/18. My clinical findings support the need for the requested home health care services because: I certify that my clinical findings support that this patient is homebound because: _ (1) Closed left calcaneal fracture Qualifiers: Calcaneus location: Encounter type: Fracture alignment: Fracture healing : Fracture morphology: Salter-Borjas Fracture Type:
[2018-11-14] MEDS: Pantoprazole Sodium 20 MG DR Tablet PO SCH (14:26)
[2018-11-14] MEDS: Sodium Chloride 0.9% 2 ML Flush BID IV.FLUSH SCH ×2 (14:27→21:00)
--- NOTE | 2018-11-14 22:31 | ECG ---
Date Performed: 11/14/2018 Time Performed: 09:40:04 PTAGE: 73 years EKG: Sinus rhythm NORMAL ECG NO PREVIOUS TRACING DOCTOR: Garland Garcia Interpretating Date/Time 11/14/2018 22:30:16
--- NOTE | 2018-11-15 06:38 | P.PNOP ---
Subjective Interval history: Resting comfortably. Is anticipating discharged home today. He was unable to get wheelchair with elevated leg rest yesterday. Physical Exam Vital signs: Vital Signs 11/14/18 08:00 11/14/18 10:42 11/14/18 12:00 Temperature 98.2 F 98.4 F Pulse Rate 75 76 Respiratory Rate 18 18 Blood Pressure 132/63 145/68 H Pulse Oximetry 97 97 97 11/14/18 16:00 11/14/18 20:00 11/14/18 23:00 Temperature 98.3 F 98.6 F Pulse Rate 81 85 Respiratory Rate 17 18 Blood Pressure 131/60 111/56 L Pulse Oximetry 98 97 97 11/15/18 01:30 11/15/18 05:35 Temperature 97.7 F 98.4 F Pulse Rate 91 H 84 Respiratory Rate 17 17 Blood Pressure 130/59 L 139/65 Pulse Oximetry 97 97 Intake & Output 11/14/18 11/14/18 11/15/18 06:59 18:59 06:59 Intake Total 0 / 0 720 / 720 Output Total 350 / 350 620 / 620 400 / 400 Balance -350 / -350 -620 / -620 320 / 320 Weight 93 kg 93 kg Intake: Oral 0 / 0 720 / 720 Output: Urine 350 / 350 620 / 620 400 / 400 Other: # Voids 2 1 Date of Last Bowel Movement 11/12/18 11/12/18 11/12/18 # Bowel Movements 0 0 Weight On Admission 93 kg Narrative: Right upper extremity: Sling in place. Moderate tenderness to palpation of shoulder. Distally intact sensation with full extension and flexion of all fingers. Good capillary refills and distal pulses Left lower extremity: Clean dry dressings intact over the ankle with splint. Intact sensation in toes. Good capillary refills Results - Labs CBC & Chem 7: 11/13/18 17:05 11/13/18 17:05 Assessment and Plan - Assessment and Plan Left calcaneus fracture Due to swelling and blistering of skin it is unsafe to make a surgical incision. He will continue to remain in splint and will follow-up in office in 13 days. He will continue to keep it elevated to decrease swelling. He will take anti-inflammatory such as Motrin 3 times a day for 7 days. He understands importance of nonweightbearing and elevation to decrease swelling. We will keep the splint clean and dry. Dislocated right shoulder reduced in the emergency room Remain in sling and swath. Nonweightbearing Discharge to home once walker with elevated leg rest is obtained Follow-up with Dr. Black on 11/28/2018. That point we will discuss conservative versus surgical intervention
[2018-11-15] MEDS: Pantoprazole Sodium 20 MG DR Tablet PO SCH (09:19)
[2018-11-15] MEDS: Metoprolol Tartrate 25 MG Tablet PO SCH (09:20)
[2018-11-15] MEDS: hydroCHLOROthiazide 25 MG Tablet PO SCH (09:20)
[2018-11-15] MEDS: Lisinopril 20 MG Tablet PO SCH (09:20)
[2018-11-15] MEDS: Sodium Chloride 0.9% 2 ML Flush BID IV.FLUSH SCH (09:21)
--- NOTE | 2018-11-15 11:43 | P.PNIM ---
Subjective Interval history: Pt was discharged yesterday but unable to leave yesterday due to issues obtaining DME Spoke with CM and there has been hold up with the [employer] company bringing the wheel chair with elevated leg raise. Physical Exam Vital signs: Last Vital Signs Temp 98.4 F 11/15/18 08:00 Pulse 88 11/15/18 08:00 Resp 19 11/15/18 08:00 BP 149/70 H 11/15/18 08:00 Pulse Ox 95 11/15/18 08:00 Narrative: left foot splinted right arm sling Results Labs CBC & Chem 7: 11/13/18 17:05 11/13/18 17:05 Imaging Foot X-Ray 11/13/18 14:09 CONCLUSION: Questionable comminuted, minimally displaced fracturing of the mid and distal body of the calcaneus. If felt clinically indicated, left foot CT recommended. Other bones of the left foot appear intact. Foot CT 11/13/18 14:38 CONCLUSION: Extremely comminuted acute fracture of the calcaneus as described. There is intra-articular involvement of the calcaneocuboid joint and also the posterior and middle facets of the subtalar joint. Please see above. Chest X-Ray 11/13/18 16:48 CONCLUSION: No acute cardiopulmonary disease demonstrated. Assessment and Plan Assessment (1) Closed left calcaneal fracture: Code(s): S92.002A - Unspecified fracture of left calcaneus, initial encounter for closed fracture Status: Acute Plan - Pt was admitted after fall for left calcaneal fx and left humerus dislocation. - Pt seen by Ortho Dr Black, there is too much swelling and blistering to safely operate - Pt recommended to remain in the splint and will follow-up in office with Dr. Black in 13 days. - He was instructed by Ortho to continue to keep it elevated to decrease swelling and take anti-inflammatory such as Motrin 3 times a day for 7 days. - Pt is to be nonweightbearing to the LLE - Awaiting DME arrival of wheelchair with elevated leg rest. - Pain meds written per ortho. Attending Attestation Patient examined. Assessment and plan formulated with Rosalee Preez PA-C. I agree with the above. Progress Note: Quality VTE Deep Vein Thrombosis/Pulmonary Embolism Present on Admission: No _ (1) Closed left calcaneal fracture Qualifiers: Calcaneus location: Encounter type: Fracture alignment: Fracture healing : Fracture morphology: Salter-Borjas Fracture Type:
[2018-11-15 12:51] VITALS: BP 135/62; PULSE 76; RESP 18; TEMP 98.1; O2SAT 96
== END 2018-11-15 17:44 | disposition home health service (06) | DRG 563 ==
LOC: PHED 11:54 → PHEDA 17:19 → N06 20:18
PROVIDERS: ADMIT Hospitalist; ATTEND Hospitalist
CPT/HCPCS: 23650; 71010; 71045; 73020; 73030; 73610; 73630; 73700; 80053; 82550; 82552; 84484; 85025; 85610; 85730; 90774; 93005; 94770; 96374; 99285; C8952; J0360; J2250; J2270; J7030; J7120